=== PATIENT | female | born 1960 | race Caucasian/White ===

== ENCOUNTER 2020-01-02 22:01 | Emergency (ER) | payer MEDICAID ==
[~2020-01-02] VITALS: Ht 162.6 cm; Wt 77.2 kg
[~2020-01-02 22:01] MED LIST: ASPI81TA52 PO; CLON-527 PO; CYCL-1 PO; HYDR-4353 PO; IBUP-1574 PO; METH500T PO; NAPR-232 PO
[2020-01-02 22:22] LABS: BASOPHILS % (AUTO) 0.3 % (0-1); EOSINOPHILS % (AUTO) 0 % (0-6); HEMATOCRIT 42.3 % (35.0-45.0); LYMPHOCYTES # (AUTO) 1.6 X10'3 (1.1-4.8); LYMPHOCYTES % (AUTO) 10.8 % (21-51); MEAN CORPUSCULAR HEMOGLOBIN 30.7 PG (27.0-31.0); MEAN CORPUSCULAR HGB CONC 33.2 g/dL (33.0-36.5); MEAN CORPUSCULAR VOLUME 92.3 FL (78-98); MEAN PLATELET VOLUME 8.3 FL (7.4-10.4); MONOCYTES # (AUTO) 0.6 X10'3 (0-0.9); MONOCYTES % (AUTO) 3.9 % (2-12); NEUTROPHILS # (AUTO) 12.4 X10'3 (1.8-7.7); PLATELET COUNT 314 X10'3 (140-440); RED BLOOD COUNT 4.58 X10'6 (4.20-5.60); RED CELL DISTRIBUTION WIDTH 14.4 % (11.5-14.5); WHITE BLOOD COUNT 14.5 X10'3 (4.5-11.0)
[2020-01-02 22:40] LABS: ALANINE AMINOTRANSFERASE 62 U/L (12-78); ALBUMIN 3.8 G/DL (3.4-5.0); ALBUMIN/GLOBULIN RATIO 0.8 (1.1-1.5); ALKALINE PHOSPHATASE 86 IU/L (46-116); ANION GAP 15 (8-16); ASPARTATE AMINO TRANSFERASE 40 U/L (10-37); BILIRUBIN,TOTAL 1.2 MG/DL (0.1-1.0); BLOOD UREA NITROGEN 20 MG/DL (7-18); BUN/CREATININE RATIO 23.5 (6.6-38.0); CALCIUM 8.7 MG/DL (8.5-10.1); CHLORIDE 106 MMOL/L (99-107); CREATININE 0.85 MG/DL (0.40-0.90); GLUCOSE 123 MG/DL (70-104); LIPASE 117 U/L (73-393); POTASSIUM 3.2 MMOL/L (3.5-5.1); SODIUM 144 MMOL/L (135-145); TOTAL CARBON DIOXIDE 23.3 MMOL/L (24-32); TOTAL PROTEIN 8.4 G/DL (6.4-8.2); eGFR 69 ML/MIN
[2020-01-02] MEDS ORDERED: LORazepam 2 mg/ml vial IV ONE ×2 (22:50→23:35)
[2020-01-02] MEDS ORDERED: ondansetron/PF 4mg/2ml inj IV ONE (22:50)
[2020-01-02] MEDS ORDERED: normal saline 1000ML IV soln IVB ONE (22:50)
[2020-01-02] MEDS ORDERED: pantoprazole 40 MG vial IV ONE (22:50)
[2020-01-02] MEDS: morphine 2 MG/ML inj. syringe IV PRN ×2 (23:03→23:59)
[2020-01-02 23:14] LABS: CLARITY,URINE CLOUDY (Clear); COLOR,URINE YELLOW (Yellow); GLUCOSE, URINE NEGATIVE (Neg); KETONES,URINE TRACE mg/dl (Neg); LEUKOCYTE ESTERASE ,URINE NEGATIVE (Neg); NITRITES, URINE NEGATIVE (Neg); OCCULT BLOOD,URINE TRACE-INTACT (Neg); PH,URINE 5.5 (4.8-8.0); PROTEIN,URINE TRACE mg/dl (Neg); UROBILINOGEN,URINE 0.2 E.U/dL (0.2-1.0)
[2020-01-02 23:20] LABS: UA COLLECTION TYPE CLN CATCH MIDSTREAM
[2020-01-02 23:22] LABS: AMORPHOUS URATES 3+; BACTERIA,URINE NONE SEEN /HPF (Neg); RBC,URINE 0-2 /HPF (0-2); SQUAMOUS EPITHELIAL CELL,UR MANY /LPF (FEW); WBC,URINE NONE SEEN /HPF (0-4)
[2020-01-02] MEDS ORDERED: ONDA8TAB13 PO (23:31)
[2020-01-02] MEDS ORDERED: PANT-47 PO (23:31)
[2020-01-02] MEDS ORDERED: proCHLORperazine 10 MG/2 ml inj IV ONE (23:35)
--- NOTE | 2020-01-03 00:24 | NUR ---
RELIEVING RN FOR BREAK, PT IS RESTING QUIETLY ON GURNEY, GAVE HER A WARM BLANKET, NO N/V NOW
[2020-01-03] MEDS ORDERED: iohexol 300mg/ml 100ml inj. ONE (01:08)
--- NOTE | 2020-01-03 02:26 | NUR ---
GAVE PT WATER FOR PO CHALLENGE PER DRISS BECKER REQUEST
[2020-01-03 02:28] VITALS: BP 108/58
== END 2020-01-03 02:35 | disposition home or self-care (01) ==
LOC: ER 22:01
DX: R11.2 Nausea with vomiting, unspecified (principal); R10.13 Epigastric pain; R10.10 Upper abdominal pain, unspecified; G89.29 Other chronic pain; Z90.49 Acquired absence of other specified parts of digestive tract; Z90.710 Acquired absence of both cervix and uterus; Z98.890 Other specified postprocedural states; Z88.2 Allergy status to sulfonamides; Z88.1 Allergy status to other antibiotic agents; Z88.5 Allergy status to narcotic agent; Z79.82 Long term (current) use of aspirin; Z79.899 Other long term (current) drug therapy
CPT/HCPCS: 36415; 74177; 80053; 81001; 83690; 85025; 96361; 96374; 96375; 96376; 99285; C9113; J0780; J2060; J2270; J2405; J7030; Q9967

== ENCOUNTER 2020-11-18 18:01 | Emergency (ER) | payer MEDICAID ==
[~2020-11-18] VITALS: Ht 162.6 cm; Wt 75.0 kg
[~2020-11-18 18:01] MED LIST changes: +ONDA8TAB13 PO; +PANT-47 PO
[2020-11-18] MEDS ORDERED: proCHLORperazine 10 MG/2 ml inj IV ONE (18:15)
[2020-11-18] MEDS ORDERED: ondansetron/PF 4mg/2ml inj IV ONE ×2 (18:15→20:55)
[2020-11-18] MEDS ORDERED: normal saline 1000ml 1,000 ML IV ONE (18:15)
[2020-11-18] MEDS ORDERED: diphenhydrAMINE 50 mg/ml inj IV ONE ×2 (18:15→20:55)
[2020-11-18] MEDS ORDERED: pantoprazole 40 MG vial IV ONE (18:25)
[2020-11-18 18:31] LABS: BASOPHILS % (AUTO) 0.2 % (0-1); EOSINOPHILS % (AUTO) 0 % (0-6); HEMATOCRIT 39.3 % (35.0-45.0); LYMPHOCYTES # (AUTO) 1.5 X10'3 (1.1-4.8); LYMPHOCYTES % (AUTO) 13.1 % (21-51); MEAN CORPUSCULAR HEMOGLOBIN 31.1 PG (27.0-31.0); MEAN CORPUSCULAR HGB CONC 33.2 g/dL (33.0-36.5); MEAN CORPUSCULAR VOLUME 93.7 FL (78-98); MEAN PLATELET VOLUME 8.5 FL (7.4-10.4); MONOCYTES # (AUTO) 0.3 X10'3 (0-0.9); NEUTROPHILS # (AUTO) 9.3 X10'3 (1.8-7.7); NEUTROPHILS % (AUTO) 83.7 % (42-75); PLATELET COUNT 363 X10'3 (140-440); RED BLOOD COUNT 4.19 X10'6 (4.20-5.60); RED CELL DISTRIBUTION WIDTH 13.4 % (11.5-14.5); WHITE BLOOD COUNT 11.1 X10'3 (4.5-11.0)
[2020-11-18] MEDS ORDERED: LORazepam 2 mg/ml vial IV ONE (18:45)
[2020-11-18 18:50] LABS: ALANINE AMINOTRANSFERASE 25 U/L (12-78); ALBUMIN 3.8 G/DL (3.4-5.0); ALBUMIN/GLOBULIN RATIO 0.8 (1.1-1.5); ALKALINE PHOSPHATASE 78 IU/L (46-116); AMYLASE 50 U/L (25-115); ANION GAP 17 (8-16); ASPARTATE AMINO TRANSFERASE 24 U/L (10-37); BILIRUBIN,TOTAL 0.7 MG/DL (0.1-1.0); BLOOD UREA NITROGEN 21 MG/DL (7-18); BUN/CREATININE RATIO 33.3 (6.6-38.0); CALCIUM 9.4 MG/DL (8.5-10.1); CHLORIDE 102 MMOL/L (99-107); CREATININE 0.63 MG/DL (0.40-0.90); GLUCOSE 144 MG/DL (70-104); LIPASE 88 U/L (73-393); POTASSIUM 3.3 MMOL/L (3.5-5.1); SODIUM 140 MMOL/L (135-145); TOTAL CARBON DIOXIDE 21.1 MMOL/L (24-32); TOTAL PROTEIN 8.4 G/DL (6.4-8.2); eGFR > 90 ML/MIN
[2020-11-18] MEDS ORDERED: potassium Cl 20 mEq SR tablet PO ONE (18:55)
[2020-11-18] MEDS ORDERED: iohexol 300mg/ml 100ml inj. ONE (19:17)
[2020-11-18 20:24] LABS: URINE HCG NEGATIVE (NEG)
[2020-11-18 20:38] LABS: CLARITY,URINE SLIGHTLY CLOUDY (Clear); COLOR,URINE YELLOW (Yellow); GLUCOSE, URINE NEGATIVE (Neg); KETONES,URINE 40 mg/dl (Neg); LEUKOCYTE ESTERASE ,URINE NEGATIVE (Neg); NITRITES, URINE NEGATIVE (Neg); OCCULT BLOOD,URINE NEGATIVE (Neg); PH,URINE 5.5 (4.8-8.0); PROTEIN,URINE TRACE mg/dl (Neg); UROBILINOGEN,URINE 0.2 E.U/dL (0.2-1.0)
[2020-11-18] MEDS ORDERED: ONDA4TAB6 PO (20:54)
[2020-11-18] MEDS ORDERED: PANT20TA18 PO (20:54)
[2020-11-18] MEDS ORDERED: metoclopramide 5 mg/ml inj IV ONE (20:55)
[2020-11-18 21:02] LABS: UA COLLECTION TYPE CLN CATCH MIDSTREAM
[2020-11-18 21:07] VITALS: BP 143/89
[2020-11-18 21:07] LABS: RBC,URINE NONE SEEN /HPF (0-2); WBC,URINE 0-4 /HPF (0-4)
[2020-11-18 21:08] LABS: AMORPHOUS URATES 3+; BACTERIA,URINE NONE SEEN /HPF (Neg); MUCUS STRANDS MANY /LPF (Neg)
[2020-11-18 21:09] LABS: SQUAMOUS EPITHELIAL CELL,UR MODERATE /LPF (FEW)
== END 2020-11-18 21:11 | disposition home or self-care (01) ==
LOC: ER 18:01
DX: R11.2 Nausea with vomiting, unspecified (principal); R10.13 Epigastric pain; R19.7 Diarrhea, unspecified; G89.29 Other chronic pain; F41.9 Anxiety disorder, unspecified; Z90.89 Acquired absence of other organs; Z90.49 Acquired absence of other specified parts of digestive tract; Z90.710 Acquired absence of both cervix and uterus; Z98.890 Other specified postprocedural states; Z88.2 Allergy status to sulfonamides; Z88.1 Allergy status to other antibiotic agents; Z88.5 Allergy status to narcotic agent; Z79.82 Long term (current) use of aspirin; Z79.899 Other long term (current) drug therapy
CPT/HCPCS: 36415; 74176; 80053; 81001; 81025; 82150; 83690; 85025; 96374; 96375; 96376; 99285; C9113; J0780; J1200; J2060; J2405; J2765; J7030; Q9967

== ENCOUNTER 2020-11-21 20:26 | Emergency (ER) | payer MEDICAID ==
[~2020-11-21] VITALS: Ht 154.9 cm; Wt 72.7 kg
[~2020-11-21 20:26] MED LIST changes: +ONDA4TAB6 PO; +PANT20TA18 PO
[2020-11-21] MEDS ORDERED: diphenhydrAMINE 50 mg/ml inj IV ONE (20:40)
[2020-11-21] MEDS ORDERED: proCHLORperazine 10 MG/2 ml inj IV ONE (20:40)
[2020-11-21] MEDS ORDERED: metoclopramide 5 mg/ml inj IV ONE (20:40)
[2020-11-21] MEDS ORDERED: normal saline 1000ml 1,000 ML IV ONE (20:45)
[2020-11-21 20:49] LABS: BASOPHILS % (AUTO) 0.3 % (0-1); EOSINOPHILS % (AUTO) 0 % (0-6); HEMATOCRIT 39.6 % (35.0-45.0); HEMOGLOBIN 13.7 g/dl (12.0-16.0); LYMPHOCYTES # (AUTO) 1.8 X10'3 (1.1-4.8); LYMPHOCYTES % (AUTO) 12.6 % (21-51); MEAN CORPUSCULAR HEMOGLOBIN 32.1 PG (27.0-31.0); MEAN CORPUSCULAR HGB CONC 34.6 g/dL (33.0-36.5); MEAN PLATELET VOLUME 8.2 FL (7.4-10.4); MONOCYTES # (AUTO) 0.7 X10'3 (0-0.9); NEUTROPHILS # (AUTO) 11.9 X10'3 (1.8-7.7); NEUTROPHILS % (AUTO) 82.1 % (42-75); PLATELET COUNT 331 X10'3 (140-440); RED BLOOD COUNT 4.26 X10'6 (4.20-5.60); RED CELL DISTRIBUTION WIDTH 13.1 % (11.5-14.5); WHITE BLOOD COUNT 14.5 X10'3 (4.5-11.0)
--- NOTE | 2020-11-21 20:59 | NUR ---
Pt continues to moan loudly in pain and is intermittently dry heaving. States having diarrhea today. States no hx of abd issues, has had appy and cholecystectomy. Reports seen here a few days ago for same and given zofran perscription that is not helping. States has not eaten since this started, as she tries to drink and eat small amts but vomits shortly after.
[2020-11-21 21:00] LABS: ALANINE AMINOTRANSFERASE 32 U/L (12-78); ALBUMIN 3.7 G/DL (3.4-5.0); ALBUMIN/GLOBULIN RATIO 0.8 (1.1-1.5); ALKALINE PHOSPHATASE 71 IU/L (46-116); ANION GAP 14 (8-16); ASPARTATE AMINO TRANSFERASE 22 U/L (10-37); BILIRUBIN,TOTAL 0.8 MG/DL (0.1-1.0); BLOOD UREA NITROGEN 20 MG/DL (7-18); BUN/CREATININE RATIO 23.5 (6.6-38.0); CALCIUM 8.9 MG/DL (8.5-10.1); CHLORIDE 100 MMOL/L (99-107); CREATININE 0.85 MG/DL (0.40-0.90); GLUCOSE 112 MG/DL (70-104); POTASSIUM 3.2 MMOL/L (3.5-5.1); SODIUM 137 MMOL/L (135-145); TOTAL CARBON DIOXIDE 23.4 MMOL/L (24-32); TOTAL PROTEIN 8.1 G/DL (6.4-8.2); eGFR 69 ML/MIN
[2020-11-21] MEDS ORDERED: ketorolac tromethamine 15mg/ml inj. IV ONE (21:10)
[2020-11-21] MEDS ORDERED: LIDOcaine Viscous 15ml cup MM ONE (21:10)
[2020-11-21 21:12] LABS: ETHANOL < 0.010 GM/DL (0.0-0.010); LIPASE 131 U/L (73-393); TROPONIN I < 0.04 NG/ML (0.0-0.05)
[2020-11-21] MEDS: mag hydrox/Alum hydrox/simeth 30ml oral suspension PO ONE ×2 (21:15→23:10)
[2020-11-21] MEDS: acetaminophen 325mg tablet PO ONE ×2 (21:15→23:10)
[2020-11-21 21:34] LABS: CLARITY,URINE CLEAR (Clear); COLOR,URINE YELLOW (Yellow); GLUCOSE, URINE NEGATIVE (Neg); KETONES,URINE 40 mg/dl (Neg); LEUKOCYTE ESTERASE ,URINE NEGATIVE (Neg); NITRITES, URINE NEGATIVE (Neg); OCCULT BLOOD,URINE NEGATIVE (Neg); PH,URINE 7.5 (4.8-8.0); PROTEIN,URINE NEGATIVE (Neg); UA COLLECTION TYPE CLN CATCH MIDSTREAM
[2020-11-21] MEDS ORDERED: potassium CL 20mEq in D5-1/2NS 1,000 ML IV ONE (21:40)
[2020-11-21] MEDS ORDERED: ondansetron/PF 4mg/2ml inj IV ONE (21:45)
[2020-11-21] MEDS ORDERED: fentaNYL/PF 50MCG/1 ML 2ML syringe IV ONE (21:45)
[2020-11-21] MEDS ORDERED: PROM25SU9 RC (21:58)
[2020-11-21] MEDS ORDERED: POTA20TA19 PO (21:58)
[2020-11-21] MEDS ORDERED: PANT-47 PO (21:58)
[2020-11-21] MEDS ORDERED: PROC-8 PO (21:58)
[2020-11-21 22:18] LABS: URINE AMPHETAMINE SCREEN NEGATIVE (Neg); URINE BARBITUATE SCREEN NEGATIVE (Neg); URINE BENZODIAZEPINES SCREEN NEGATIVE (Neg); URINE CANNABINOID SCREEN NEGATIVE (Neg); URINE COCAINE SCREEN NEGATIVE (Neg); URINE METHADONE SCREEN NEGATIVE (Neg); URINE OPIATE SCREEN POSITIVE (Neg); URINE PHENCYCLIDINE SCREEN NEGATIVE (Neg)
[2020-11-21] MEDS ORDERED: dicyclomine 10mg/ml 2ml ampule IM ONE (22:50)
--- NOTE | 2020-11-21 22:53 | NUR ---
PT IS CALMER NOW. DR. LAGUERRE GAVE VERBAL FOR BENTYL IV AND PHENERGAN IF PT REMAINS NAUSEAUS. HE ALSO REPORTS HE HAS ORDERED D51/2 NS WITH 20 K PTS K IS 3.2. AND IT IS TO BE GIVEN BOLUS. PHARMACY REPORTS PT CAN RECEIVE K AT 10 MEQ AN HR, SO FLUID BOLUS TO BE GIVEN OVER 2 HRS.
[2020-11-21] MEDS ORDERED: dextrose 5%-1/2 normal saline 1,000 ML IV ONE (22:55)
[2020-11-21] MEDS ORDERED: normal saline 1000ML IV soln IVB ONE (23:05)
--- NOTE | 2020-11-21 23:13 | NUR ---
FS TALKING WITH PT AND HER ABOUT NEED FOR 1 ADTL NS BOLUS. PT IS WANTING TO LEAVE AND IS STILL NAUSEAUS AND DOES NOT WANT THE GI COCKTAIL ORDERED. GIVEN FENTANYL 50 MCG AND BENTYL IM AND 2ND LITER INFUSING NOS. REPORTS PT WILL BE OK TO DC AFTER THIS INFUSES. PT AND ARE AGREEABLE TO THIS PLAN
[2020-11-21 23:42] VITALS: BP 169/77
== END 2020-11-21 23:44 | disposition home or self-care (01) ==
LOC: ER 20:27
DX: R11.2 Nausea with vomiting, unspecified (principal); R10.84 Generalized abdominal pain; G89.29 Other chronic pain; F41.9 Anxiety disorder, unspecified; Z90.89 Acquired absence of other organs; Z90.49 Acquired absence of other specified parts of digestive tract; Z90.710 Acquired absence of both cervix and uterus; Z98.890 Other specified postprocedural states; Z88.2 Allergy status to sulfonamides; Z88.1 Allergy status to other antibiotic agents; Z88.5 Allergy status to narcotic agent; Z88.8 Allergy status to other drugs, medicaments and biological substances; Z79.82 Long term (current) use of aspirin; Z79.899 Other long term (current) drug therapy
CPT/HCPCS: 36415; 74176; 80053; 80305; 80320; 81003; 83690; 84145; 84484; 85025; 96361; 96372; 96374; 96375; 99284; J0500; J0780; J1200; J1885; J2765; J3010; J7030

== ENCOUNTER 2021-10-15 08:40 | Emergency (ER) | payer MEDICAID ==
[~2021-10-15] VITALS: Ht 167.6 cm; Wt 90.0 kg
[~2021-10-15 08:40] MED LIST changes: +PROC-8 PO; +PROM25SU9 RC
[2021-10-15] MEDS ORDERED: normal saline 1000ml 1,000 ML IV ONE (09:00)
[2021-10-15] MEDS ORDERED: proCHLORperazine 10 MG/2 ml inj IV ONE (09:00)
[2021-10-15] MEDS ORDERED: haloperidol lactate 5mg/ml inj IM ONE (09:00)
[2021-10-15] MEDS ORDERED: ketorolac tromethamine 15mg/ml inj. IV ONE (09:00)
[2021-10-15] MEDS ORDERED: magnesium 2GM in 50ml NS 50 ML IV ONE (09:00)
[2021-10-15] MEDS ORDERED: normal saline 1000ML IV soln IVB ONE (09:00)
[2021-10-15 09:30] LABS: BASOPHILS % (AUTO) 0.3 % (0-1); EOSINOPHILS % (AUTO) 0.1 % (0-6); HEMATOCRIT 41.9 % (35.0-45.0); HEMOGLOBIN 14.2 g/dl (12.0-16.0); LYMPHOCYTES # (AUTO) 1.9 X10'3 (1.1-4.8); LYMPHOCYTES % (AUTO) 16.5 % (21-51); MEAN CORPUSCULAR HEMOGLOBIN 31.6 PG (27.0-31.0); MEAN PLATELET VOLUME 8.7 FL (7.4-10.4); MONOCYTES # (AUTO) 0.6 X10'3 (0-0.9); MONOCYTES % (AUTO) 5.5 % (2-12); NEUTROPHILS # (AUTO) 8.8 X10'3 (1.8-7.7); NEUTROPHILS % (AUTO) 77.6 % (42-75); PLATELET COUNT 303 X10'3 (140-440); RED CELL DISTRIBUTION WIDTH 12.7 % (11.5-14.5); WHITE BLOOD COUNT 11.3 X10'3 (4.5-11.0)
[2021-10-15 09:46] LABS: ALANINE AMINOTRANSFERASE 28 U/L (12-78); ALBUMIN 4.1 G/DL (3.4-5.0); ALBUMIN/GLOBULIN RATIO 0.9 (1.1-1.5); ALKALINE PHOSPHATASE 65 IU/L (46-116); ANION GAP 13 (8-16); ASPARTATE AMINO TRANSFERASE 25 U/L (10-37); BILIRUBIN,TOTAL 1.4 MG/DL (0.1-1.0); BLOOD UREA NITROGEN 22 MG/DL (7-18); BUN/CREATININE RATIO 46.8 (6.6-38.0); CALCIUM 9.1 MG/DL (8.5-10.1); CHLORIDE 99 MMOL/L (99-107); CREATININE 0.47 MG/DL (0.40-0.90); GLUCOSE 111 MG/DL (70-104); LIPASE 98 U/L (73-393); MAGNESIUM 2.4 MG/DL (1.5-2.4); SODIUM 138 MMOL/L (135-145); TOTAL CARBON DIOXIDE 26.4 MMOL/L (24-32); TOTAL PROTEIN 8.7 G/DL (6.4-8.2); eGFR > 90 ML/MIN
[2021-10-15 09:58] LABS: POTASSIUM 2.7 MMOL/L (3.5-5.1)
[2021-10-15] MEDS ORDERED: potassium CL 10mEq/100ml bag 100 ML IV ONE ×2 (10:55→14:20)
[2021-10-15] MEDS ORDERED: PROM12.512 PO (14:43)
[2021-10-15] MEDS ORDERED: POTA-192 PO (14:44)
[2021-10-15 15:12] VITALS: BP 121/68
== END 2021-10-15 15:11 | disposition home or self-care (01) ==
LOC: ER 08:41
DX: E87.6 Hypokalemia (principal); Z20.822 Contact with and (suspected) exposure to COVID-19; R11.2 Nausea with vomiting, unspecified; R10.84 Generalized abdominal pain; G89.29 Other chronic pain; F41.9 Anxiety disorder, unspecified; Z90.89 Acquired absence of other organs; Z90.49 Acquired absence of other specified parts of digestive tract; Z90.710 Acquired absence of both cervix and uterus; Z98.890 Other specified postprocedural states; Z88.2 Allergy status to sulfonamides; Z88.5 Allergy status to narcotic agent; Z88.8 Allergy status to other drugs, medicaments and biological substances; Z79.82 Long term (current) use of aspirin; Z79.899 Other long term (current) drug therapy
CPT/HCPCS: 36415; 80053; 83690; 83735; 85025; 87635; 93005; 96365; 96366; 96367; 96372; 96375; 99284; C9803; J0780; J1630; J1885; J3475; J3480; J7030